=== PATIENT | female | born 1990 | race Caucasian/White ===

== ENCOUNTER → 2016-10-27 | Outpatient (REF) | payer OTHER ==
[~2016-10-27] MED LIST: ACET50TA PO; IBUP80TA PO; VITAPRTA PO
== END ==
LOC: M LAB REF 16:54
PROVIDERS: ATTEND Advanced Practice Midwife
DX: Z36 Encounter for antenatal screening of mother (principal); Z3A.00 Weeks of gestation of pregnancy not specified

== ENCOUNTER 2016-11-20 02:10 | Inpatient (IN) | payer OTHER ==
[~2016-11-20] VITALS: Ht 167.6 cm; Wt 78.0 kg
[2016-11-20] VITALS (33 sets, daily range): BP systolic 95–135; BP diastolic 53–85
[2016-11-20] MEDS ORDERED: LACTATED RINGER'S 1000 ML IV STA (05:48)
[2016-11-20] MEDS ORDERED: LR 1,000 ML IV SCH (05:48)
[2016-11-20 06:35] LABS: MEAN CORPUSCULAR HEMOGLOBIN 25.8 pg (27.0-33.0); MEAN CORPUSCULAR VOLUME 78.1 fl (80.0-96.0); RED CELL DISTRIBUTION WIDTH 14.7 % (11.5-14.5); WHITE BLOOD COUNT 13.3 K/mm3 (4.0-10.0)
[2016-11-20] MEDS ORDERED: FENTANYL 2MCG/ML ROPIVACAINE 0.2% NACL 250 ML CADD As Ordered ONE (06:40)
[2016-11-20] MEDS ORDERED: FENTANYL/ROPIVACAINE/NACL CADD 250 ML EPIDURAL SCH (07:15)
[2016-11-20] MEDS ORDERED: EPIDURAL/PCA KEYS XX PRN (07:15)
[2016-11-20] MEDS ORDERED: EPIDURAL COMMENT XX SCH (07:15)
[2016-11-20] MEDS ORDERED: NALOXONE INJ 0.4 MG/1 ML VIAL (J2310) IV PRN (07:15)
[2016-11-20] MEDS ORDERED: ONDANSETRON 4MG/2ML VIAL (J2405) IV PRN (07:15)
[2016-11-20] MEDS ORDERED: REFRIGERATOR IV KEYS XX PRN (07:15)
[2016-11-20] MEDS ORDERED: LACTATED RINGER'S 1000 ML IV PRN (07:15)
[2016-11-20] MEDS ORDERED: diphenhydrAMINE INJ 50MG/ML VIAL (J1200) IV PRN (07:15)
[2016-11-20] MEDS ORDERED: ePHEDrine SULFATE 25 MG/5 ML(5MG/ML) SYRINGE IV PRN (07:15)
[2016-11-20] MEDS: PRENATAL VITAMIN TAB PO SCH (09:00)
[2016-11-20] MEDS ORDERED: OXYTOCIN DRIP 30 UNITS in APPROPRIATE DILUENT 1 EA IV SCH ×2 (11:00→12:56)
[2016-11-20] MEDS ORDERED: RHOGAM 300 MCG (1500 IU) INJ (J2790) IM SCH (13:00)
[2016-11-20] MEDS ORDERED: DIBUCAINE 1% OINTMENT 30GM TOP PRN (13:00)
[2016-11-20] MEDS ORDERED: MOM 30ML SUSPENSION UDC PO PRN (13:00)
[2016-11-20] MEDS ORDERED: ANUSOL HC CREAM 30GM TOP PRN (13:00)
[2016-11-20] MEDS ORDERED: ACETAMINOPHEN 500 MG TAB PO PRN (13:00)
[2016-11-20] MEDS ORDERED: MEASLES,MUMPS,RUBELLA VACCINE INJ (MMR-II) (90707) SC SCH (13:00)
[2016-11-20] MEDS ORDERED: METHYLERGONOVINE MALEATE 0.2 MG TAB PO PRN (13:00)
[2016-11-20] MEDS ORDERED: DOCUSATE SODIUM 100 MG CAP PO PRN (13:00)
--- NOTE | 2016-11-20 13:18 | DN ---
DATE OF DELIVERY: 11/20/2016 TIME OF DELIVERY: 1228 hours. GENDER: Male. SCORES: 9 and 9. WEIGHT: 7 pounds 1 ounce or 3212 grams. ANESTHESIA: Epidural. LACERATIONS: First degree midline laceration. COUNTS: Five laparotomy sponges accounted for prior to and after delivery. One sharp removed from the delivery field. ESTIMATED BLOOD LOSS: 300 mL. DELIVERY NOTE: On November 20, 2016, Mrs. Morales a 26-year-old 2 now para 2 had spontaneous vaginal delivery of a live born male infant with scores of 9 and 9. Weight 7 pounds 1 ounce or 3212 grams. Head was delivered OA followed by delivery of the anterior and posterior shoulder and corpus. The infant was handed to mom with a good cry. Cord was clamped times two and was cut by the father of the baby under my direction. Cord blood was ten obtained. Placenta was then drained and delivered grossly intact. A premixed bag of 500 mL of normal saline with 30 units of pitocin was then bolused along with uterine massage. The uterus was firm. On inspection there was a first degree midline laceration which was repaired with #3-0 Vicryl Rapide. On reinspection of the cervix and vagina, the perineum was grossly intact and hemostatic. Mom and baby were recovering in stable condition. The couple has decided to name their son
[2016-11-20] MEDS: IBUPROFEN 800 MG TAB PO PRN (16:46)
[2016-11-21] MEDS: IBUPROFEN 800 MG TAB PO PRN (00:59)
[2016-11-21 05:26] VITALS: BP 128/63
[2016-11-21] MEDS: PRENATAL VITAMIN TAB PO SCH (07:31)
[2016-11-21] MEDS: KETOROLAC 30 MG/ML VIAL (J1885) IV SCH ×3 (09:54→22:18)
[2016-11-21 18:29] VITALS: BP 130/76
[2016-11-22] MEDS: KETOROLAC 30 MG/ML VIAL (J1885) IV SCH (05:29)
[2016-11-22 06:03] VITALS: BP 126/87
[2016-11-22] MEDS: PRENATAL VITAMIN TAB PO SCH (07:20)
[2016-11-22] MEDS ORDERED: ADACEL/BOOSTRIX VACCINE (DIPHTH/PERTUSS/ACELL/TETANUS)0.5ML SYR (90715) IM ONE (09:00)
[2016-11-22] MEDS ORDERED: COLA100C PO (09:58)
[2016-11-22] MEDS ORDERED: MILKSUS PO (09:58)
[2016-11-22] MEDS ORDERED: ACET50TA PO (09:58)
--- NOTE | 2016-11-23 09:13 | IPN ---
DATE OF VISIT: 11/22/2015 This lady and requested circumcision of their male . After discussing the risks and benefits of circumcision, the medical and nonmedical indications, penile block and aftercare, both expressed understanding of the penile block and aftercare, signed and witnessed the consent form and we await the clearance by the home appliance washing machine mechanic.
== END 2016-11-22 13:40 | disposition home or self-care (01) | DRG 775 ==
LOC: M LDO 02:10 → M LDI 05:40 → M OBS 14:48
PROVIDERS: ADMIT Obstetrics & Gynecology; ATTEND Obstetrics & Gynecology
PROC: 10E0XZZ Delivery of Products of Conception, External Approach (ICD-10-PCS; principal; 2016-11-20)
PROC: 0HQ9XZZ Repair Perineum Skin, External Approach (ICD-10-PCS; 2016-11-20)
PROC: 10907ZC Drainage of Amniotic Fluid, Therapeutic from Products of Conception, Via Natural or Artificial Opening (ICD-10-PCS; 2016-11-20)
DX: O70.0 First degree perineal laceration during delivery (principal); Z37.0 Single live birth; Z3A.40 40 weeks gestation of pregnancy